=== PATIENT | male | born 1945 | race Caucasian/White ===

== ENCOUNTER 2018-06-20 10:25 | Emergency (ER) | payer MEDICARE, OTHER ==
[~2018-06-20] VITALS: Ht 182.9 cm; Wt 90.5 kg
[~2018-06-20 10:25] MED LIST: LEVAQUIN 750MG750 M1 PO; PARNATE10 MG PO; ZOFRAN4 MG PO
[2018-06-20 10:28] VITALS: TEMP 98.2
[2018-06-20] MEDS ORDERED: FLOMAX 0.40.4 MG/CAP (10:39)
[2018-06-20] MEDS ORDERED: ZANTAC 300300 MG (10:40)
[2018-06-20] MEDS ORDERED: TAMIFLU 75MG75 MG PO (11:44)
[2018-06-20] MEDS ORDERED: ZOFRAN 4MG T4 MG/TAB PO (11:57)
[2018-06-20 12:13] VITALS: BP 121/73; PULSE 83
== END 2018-06-20 12:14 | disposition home or self-care (01) ==
LOC: COL.ER 10:25
DX: J10.1 Influenza due to other identified influenza virus with other respiratory manifestations (principal)

== ENCOUNTER 2021-02-08 10:23 | Outpatient (CLI) | payer MEDICARE, OTHER ==
[2021-02-08] VITALS (7 sets, daily range): BP systolic 102–125; BP diastolic 80–102; PULSE 66–79; TEMP 98.6
[~2021-02-08 10:23] MED LIST changes: +FLOMAX 0.40.4 MG/CAP; +TAMIFLU 75MG75 MG PO; +ZANTAC 300300 MG; +ZOFRAN 4MG T4 MG/TAB PO
[2021-02-08] MEDS ORDERED: OSTEO-BI-FLEX 21 TAB PO (11:52)
[2021-02-08] MEDS ORDERED: ASPIRIN E.C. 8181 MG PO (11:52)
== END 2021-02-08 13:05 | disposition home or self-care (01) ==
LOC: EUO 10:23
DX: Z00.00 Encounter for general adult medical examination without abnormal findings (principal); Z12.11 Encounter for screening for malignant neoplasm of colon; Z13.31 Encounter for screening for depression; Z23 Encounter for immunization; U07.1 COVID-19
CPT/HCPCS: M0243; Q0244